=== PATIENT | male | born 1980 | race Caucasian/White ===

== ENCOUNTER 2021-05-14 23:34 | Emergency (ER) | payer OTHER ==
[~2021-05-14] VITALS: Ht 162.6 cm; Wt 113.0 kg
[2021-05-14 23:52] VITALS: BP 129/83
[2021-05-15] MEDS ORDERED: TETANUS, DIPHTHERIA, PERTUSSIS VAC/PF 0.5ML (>10YR OLD) IM ONE
[2021-05-15] MEDS ORDERED: ACETAMINOPHEN 325MG TABLET PO ONE
[2021-05-15] MEDS ORDERED: BACITRACIN ZINC OINT UDPKT TOP ONE
[2021-05-15] MEDS ORDERED: LIDOCAINE HCL/PF 1% 10 MG/ML 5ML VIAL INFIL ONE (01:45)
[2021-05-15] MEDS ORDERED: TOPUD MT (02:21)
[2021-05-15] MEDS ORDERED: BO1 TP (02:22)
== END 2021-05-15 03:09 | disposition home or self-care (01) ==
LOC: ER 23:34
DX: S61.012A Laceration without foreign body of left thumb without damage to nail, initial encounter (principal); W26.8XXA Contact with other sharp object(s), not elsewhere classified, initial encounter; Y93.89 Activity, other specified; Y92.89 Other specified places as the place of occurrence of the external cause; Y99.8 Other external cause status; Z79.899 Other long term (current) drug therapy
CPT/HCPCS: 12002; 73130; 99283; J3490

== ENCOUNTER 2021-06-15 00:01 | Emergency (ER) | payer OTHER ==
[~2021-06-15] VITALS: Ht 162.6 cm; Wt 118.0 kg
[~2021-06-15 00:01] MED LIST: BO1 TP; TOPUD MT
[2021-06-15 00:05] VITALS: BP 132/84
== END 2021-06-15 00:42 | disposition home or self-care (01) ==
LOC: ER 00:01
DX: Z71.1 Person with feared health complaint in whom no diagnosis is made (principal)
CPT/HCPCS: 99281